=== PATIENT | female | born 1980 | race Caucasian/White ===

== ENCOUNTER 2016-12-13 12:33 | Emergency (ER) | payer MEDICAID ==
[~2016-12-13] VITALS: Ht 157.5 cm; Wt 75.9 kg
[~2016-12-13 12:33] MED LIST: GUAI118L94 PO; IBUP-1542 PO; ONDA4TAB35 PO; SODI44SP11 NASAL
[2016-12-13 12:37] VITALS: Ht 157.5 cm; Wt 75.9 kg
[2016-12-13] MEDS ORDERED: CEPH-443 PO (13:45)
[2016-12-13] MEDS ORDERED: IBUP-1542 PO (13:46)
[2016-12-13] MEDS ORDERED: BACTDS PO (13:46)
--- NOTE | 2016-12-13 13:53 | ERD ---
ER Documentation Chief Complaint Date/Time DATE: 12/13/16 TIME: 13:46 Chief Complaint POSSIBLE ABCESS UPPER CHEST HPI Patient is a 35-year-old female who presents with concerns of an abscess on her lower anterior neck. Patient states that she has had an abscess in this location in the past. Patient states that she initially had a "small pimple" in the area. Patient states that she was wearing high neck shirt which may have been rubbing on the affected area, causing it grow in size. Since that time, patient has noticed that there is increasing redness and swelling to the affected area. Patient says the area is tender to palpation. Patient has been putting OTC hydrocortisone to the affected area. Patient denies any active drainage or bleeding. 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 she has burning pain to the affected area secondary to heat exposure. Patient denies any fevers however she does admit to chills. Patient denies any trouble breathing, chest pain, shortness of breath nausea, vomiting or loss of consciousness. Patient does not recall her last tetanus vaccine. ROS All systems reviewed and are negative except as per history of present illness. Medications Home Meds Active Scripts Hydrocodone/Acetaminophen (Warwick 5-325 Tablet) 1 Each Tablet, 1 TAB PO Q6H Y for PAIN, #7 TAB Prov:JUAN MIGUEL UGALDE-C 12/13/16 Ibuprofen* (Motrin*) 600 Mg Tab, 600 MG PO Q6, #30 TAB Prov:JUAN MIGUEL UGALDE-C 12/13/16 Sulfamethoxazole-Trimethoprim* (Bactrim* DS) 800-160 Mg Tab, 1 TAB PO BID for 7 Days, TAB Prov:JUAN MIGUEL UGALDE-C 12/13/16 Cephalexin* (Keflex*) 500 Mg Capsule, 500 MG PO QID for 7 Days, CAP Prov:JUAN MIGUEL UGALDE-C 12/13/16 Sodium Chloride (Saline Nasal [employer]) 45 Ml [employer], 2 SPRAYS NASAL Q2H Y for NASAL CONGESTION, #1 BOTTLE Prov:LEX CHA NP 11/20/15 Guaifenesin-Codeine Phosphate* (Guaifenesin* with Codeine Liq) 120 Ml Liquid, 5 ML PO Q4H for COUGH, #120 ML Prov:LEX CHA NP 11/20/15 Ibuprofen* (Motrin*) 600 Mg Tab, 600 MG PO Q6 for PAIN, #30 TAB 0 Refills Prov:JOYCEZAYNAB PA-C 07/29/15 Ondansetron Hcl* (Zofran* ODT) 4 mg -ODT Tab.disper, 4 MG PO DAILY Y for NAUSEA , #20 TAB 0 Refills Prov:JOYCEZAYNAB SCHOFIELD 07/29/15 Allergies Allergies: Coded Allergies: No Known Allergy (Unverified , 07/29/15) PMhx/Soc History of Surgery: No Anesthesia Reaction: No Hx Neurological Disorder: No Hx Respiratory Disorders: No Hx Cardiac Disorders: No Hx Psychiatric Problems: No Hx Miscellaneous Medical Probl: No Hx Alcohol Use: No Hx Substance Use: No Hx Tobacco Use: No FmHx Family History: No diabetes Physical Exam Vitals Vital Signs Date Time Temp Pulse Resp B/P Pulse Ox O2 Delivery O2 Flow Rate FiO2 12/13/16 12:37 97.8 88 18 154/91 99 Physical Exam GENERAL: Well-developed, well-nourished female. Appears in no acute distress. speaking in full sentences HEAD: Normocephalic, atraumatic. EYES: Pupils are equally reactive bilaterally. EOMs grossly intact. No conjunctival erythema. ENT: Moist mucous membranes. No uvula deviation. No kissing tonsils. NECK: Supple. No meningismus. Normal range of motion of the neck. LUNG: Clear to auscultation bilaterally. No rhonchi, wheezing, rales or coarse breath sounds. HEART: Regular rate and rhythm. No murmurs, rubs or gallops. EXTREMITIES: Equal pulses bilaterally. No peripheral clubbing, cyanosis or edema. No unilateral leg swelling. NEUROLOGIC: Alert and oriented. Moving all four extremities without any difficulty. Normal speech. Steady gait. SKIN: Normal color. Warm and dry. 3 cm firm, circular erythematous abscess noted below the sternal notch. +Induration. Minimal fluctuance. Minimal warmth. No active drainage or discharge. No streaking. Results 24 hrs Current Medications Medications (Trade) Dose Ordered Sig/[place]rence Route PRN Reason Start Time Stop Time Status Last Admin Dose Admin Lidocaine (Xylocaine 1% (Mdv) 20 ml) 20 ml ONCE ONCE SC 12/13/16 14:00 12/13/16 14:01 DC Diphtheria/ Tetanus/Acell Pertussis (Adacel) 0.5 ml ONCE ONCE IM* 12/13/16 14:00 12/13/16 14:01 DC 12/13/16 13:54 Procedures/MDM ED COURSE: The patient was stable throughout ED course. I kept the patient and/or family informed of laboratory and diagnostic imaging results throughout the ED course. PROCEDURES: INCISION AND DRAINAGE: The patient was verbally consented prior to procedure. Patient was explained the risks, benefits and alternatives to this procedure. Location: below sternal notch Abscess size: 3 cm Anesthesia: local 1% lidocaine, 5 cc Preparation: The area was prepped in a sterile fashion using betadine x3 cleanses. A sterile field was prepared. Technique: A sterile 11 blade scalpel was used to make a 1 cm linear incision into the abscess. Procedure: A midline abscess incision was made using a sterile scalpel in a linear fashion. Purulent material was expressed with direct pressure. Blunt probing was used to break up loculations. Bleeding was minimal. Packing: none The patient tolerated the procedure well with no complications. The wound was dressed in sterile gauze. The patient was neurovascularly intact post- procedure. Post-procedural wound care was discussed with the patient. MEDICAL DECISION MAKING: This is a 35-year-old female presents with an abscess to her lower neck. Patient states that the affected areas been growing in size and redness for the last week. Patient denied any active drainage or discharge. Vital signs were reviewed. Patient was afebrile. Patient was not hypoxic. Incision and drainage was performed. Using direct pressure, purulent discharge was expressed from the affected site. Patient tolerated procedure well without any complications. Tetanus vaccination was updated today. Low suspicion for deep space infection, cellulitis, necrotizing fasciitis. PRESCRIPTIONS: Bactrim, Keflex, Ibuprofen, Warwick DISCHARGE: At this time, the patient is stable for discharge and outpatient management. Post-procedural wound care was discussed with the patient. The patient has been advised to return to the ER in 2 days for a wound check. I have instructed the patient to promptly return to the ER for any new or worsening symptoms including increasing pain, fever, warmth, redness or swelling. The patient and/ or family expressed understanding of and agreement with this plan. All questions were answered. Home care instructions were provided. Departure Diagnosis: Primary Impression: Abscess Additional Impression: Encounter for incision and drainage procedure Condition: Stable Patient Instructions: Abscess, Incision And Drainage Referrals: [facility] YOU HAVE RECEIVED A MEDICAL SCREENING EXAM AND THE RESULTS INDICATE THAT YOU DO NOT HAVE A CONDITION THAT REQUIRES URGENT TREATMENT IN THE EMERGENCY DEPARTMENT. FURTHER EVALUATION AND TREATMENT OF YOUR CONDITION CAN WAIT UNTIL YOU ARE SEEN IN YOUR DOCTORS OFFICE WITHIN THE NEXT 1-2 DAYS. IT IS YOUR RESPONSIBILITY TO MAKE AN APPOINTMENT FOR FOLOW-UP CARE. IF YOU HAVE A PRIMARY DOCTOR --you should call your primary doctor and schedule an appointment IF YOU DO NOT HAVE A PRIMARY DOCTOR YOU CAN CALL OUR PHYSICIAN REFERRAL HOTLINE AT IF YOU CAN NOT AFFORD TO SEE A PHYSICIAN YOU CAN CHOSE FROM THE FOLLOWING [facility] [address] [employer] [address] [facility] [address] [facility] [facility] [address] [facility] [address] [facility] [facility] [address] [facility]. [facility] [address] [facility]. [facility] YOU HAVE RECEIVED A MEDICAL SCREENING EXAM AND THE RESULTS INDICATE THAT YOU DO NOT HAVE A CONDITION THAT REQUIRES URGENT TREATMENT IN THE EMERGENCY DEPARTMENT. FURTHER EVALUATION AND TREATMENT OF YOUR CONDITION CAN WAIT UNTIL YOU ARE SEEN IN YOUR DOCTORS OFFICE WITHIN THE NEXT 1-2 DAYS. IT IS YOUR RESPONSIBILITY TO MAKE AN APPOINTMENT FOR FOLOW-UP CARE. IF YOU HAVE A PRIMARY DOCTOR --you should call your primary doctor and schedule and appointment IF YOU DO NOT HAVE A PRIMARY DOCTOR YOU CAN CALL OUR PHYSICIAN REFERRAL HOTLINE AT . IF YOU CAN NOT AFFORD TO SEE A PHYSICIAN YOU CAN CHOSE FROM THE FOLLOWING [facility] INSTITUTIONS: [facility] [address] [place] [address] [facility] [address] [place] [address] [facility] [address] [place] [address] Additional Instructions: Follow up in 2 days in your clinic for wound check. Return to the emergency department for any fevers, chills, increasing warmth, increasing swelling, severe pain. Take medication as prescribed. JUAN MIGUEL UGALDE PA-C Dec 13, 2016 13:53
[2016-12-13] MEDS ORDERED: LIDOCAINE 1% (MDV) 20 ML INJ SC ONE (14:00)
[2016-12-13] MEDS ORDERED: DIPHTH/TET/ACEL PERTUSS (ADULT) 0.5 ML VIAL IM* ONE (14:00)
[2016-12-13] MEDS ORDERED: HYDR-906 PO (14:22)
== END 2016-12-13 15:33 | disposition home or self-care (01) ==
LOC: FTE 12:33
DX: L02.11 Cutaneous abscess of neck (principal); Z23 Encounter for immunization
CPT/HCPCS: 10060; 90471; Z7502